=== PATIENT | female | born 1990 | race Caucasian/White ===

== ENCOUNTER → 2024-03-03 14:38 | Outpatient (CLI) | payer OTHER, SELFPAY ==
--- NOTE | 2024-03-03 14:44 | DI.RAD.S_ITS ---
PROCEDURE: XR CHEST 2V INDICATIONS: PERSISTENT COUGH TECHNIQUE: 2 views of the chest were acquired. COMPARISON: None. FINDINGS: Surgical changes and devices: None. Lungs and pleura: Lungs are clear. No pleural effusions or pneumothorax. Mediastinum: Mediastinal contours are normal. Heart size is normal. Bones and chest wall: No suspicious bony abnormalities. Soft tissues appear unremarkable. IMPRESSION: No acute cardiopulmonary pathology. Dictated by: Primo Pinto M.D. on 03/03/2024 at 20:28 Approved by: Primo Pinto M.D. on 03/03/2024 at 20:28
== END ==
PROVIDERS: Referring Provider Family Medicine; Visit Provider Family Medicine
DX: R05.9 Cough, unspecified (principal)
CPT/HCPCS: 71046